=== PATIENT | female | born 1965 | race Caucasian/White ===

== ENCOUNTER → 2022-10-30 13:24 | Outpatient (CLI) | payer BC, SELFPAY ==
--- NOTE | 2022-10-30 | DI.MRI.S_ITS ---
PROCEDURE: MR ELBOW RT WO CON INDICATIONS: Lateral epicondylitis, right elbow TECHNIQUE: Noncontrast coronal proton density fast spin echo and T2 fast spin echo with fat saturation, axial and sagittal T1 spin echo and T2 fast spin echo with fat saturation through the elbow. COMPARISON: None. FINDINGS: Image quality: Excellent. Lateral structures: The lateral ulnar collateral ligament and radial collateral ligament both appear intact. Focal fluid signal intensity at the origin of the common extensor tendon is consistent with low-grade intrasubstance partial tearing superimposed on chronic tendinosis.. Medial structures: The ulnar collateral ligament appears intact. The overlying common flexor tendon appears normal. The ulnar nerve appears normal in size and signal within the cubital tunnel. Anterior structures: The biceps and brachialis tendons both appear intact as they insert onto the proximal radius and ulna, respectively. No bicipitoradial bursal fluid. The median and radial neurovascular bundles appear normal; no focal muscle atrophy to suggest nerve impingement. Posterior structures: The conjoint triceps tendon from the long and lateral heads appears intact. The medial head of the triceps tendon also appears normal, with direct muscle insertion onto the olecranon. No olecranon bursal fluid. Bone and cartilage: No bone marrow contusions or fractures. No osteochondral injuries. IMPRESSION: Focal low-grade partial intrasubstance tearing of the common extensor tendon at the origin superimposed on chronic tendinosis. Approved by: Maxwell Badillo M.D. on 10/30/2022 at 14:46
== END ==
PROVIDERS: Referring Provider Physician Assistant; Visit Provider Physician Assistant
DX: M77.11 Lateral epicondylitis, right elbow (principal); S56.811A Strain of other muscles, fascia and tendons at forearm level, right arm, initial encounter
CPT/HCPCS: 73221